=== PATIENT | female | born 1985 | race Caucasian/White ===

== ENCOUNTER → 2019-12-30 14:42 | Outpatient (BNVA) | payer BC, SELFPAY | PROVIDERS: Referring Provider Obstetrics & Gynecology; Visit Provider Obstetrics & Gynecology | DX: Z30.9 Encounter for contraceptive management, unspecified (principal); Z71.89 Other specified counseling | CPT/HCPCS: 81025 ==

== ENCOUNTER → 2020-06-15 13:10 | Outpatient (BNVA) | payer BC, SELFPAY | PROVIDERS: Visit Provider Obstetrics & Gynecology | DX: Z30.9 Encounter for contraceptive management, unspecified (principal) | CPT/HCPCS: 81025 ==

== ENCOUNTER → 2020-09-04 13:19 | Outpatient (BNVA) | payer BC, SELFPAY | PROVIDERS: Visit Provider Obstetrics & Gynecology | DX: Z30.9 Encounter for contraceptive management, unspecified (principal) | CPT/HCPCS: 81025 ==

== ENCOUNTER → 2020-11-25 10:36 | Outpatient (BNVA) | payer BC, SELFPAY | PROVIDERS: Visit Provider Obstetrics & Gynecology | DX: Z30.9 Encounter for contraceptive management, unspecified (principal) | CPT/HCPCS: 81025 ==

== ENCOUNTER 2021-10-25 09:56 | Outpatient (CLI) | payer MEDICAID, SELFPAY | END 2021-10-25 09:57 | disposition home or self-care (01) | PROVIDERS: Visit Provider Obstetrics & Gynecology | DX: Z32.01 Encounter for pregnancy test, result positive (principal) | CPT/HCPCS: 81025; 84702 ==

== ENCOUNTER → 2022-11-07 13:00 | Outpatient (BNVA) | payer MEDICAID, SELFPAY | PROVIDERS: Visit Provider Obstetrics & Gynecology | DX: Z01.419 Encounter for gynecological examination (general) (routine) without abnormal findings (principal) | CPT/HCPCS: 87624 ==

== ENCOUNTER 2023-01-10 08:44 | Day surgery (SDC) | payer MEDICAID, SELFPAY ==
[2023-01-09 14:22] VITALS: BMI 27.3
[2023-01-10] VITALS (8 sets, daily range): BP systolic 100–123; BP diastolic 54–68; PULSE 72–83; RESP 16–18; TEMP 36.9–37.1; O2SAT 94–100
[2023-01-10] MEDS: acetaminophen 1,000 MG/100 ML PIGGYBACK 400 MG IV (09:44)
[2023-01-10] MEDS: sodium chloride 0.9% 1,000 ML 30 ML IV (09:45)
[2023-01-10] MEDS: gabapentin 300 mg Capsule PO (09:50)
[2023-01-10] MEDS: scopolamine 1.5 Patch 1 PATCH TRANSDERMA (09:50)
[2023-01-10] MEDS: phenazopyridine 100 mg Tablet 200 MG PO (09:50)
[2023-01-10] MEDS: CELEcoxib 200 mg Capsule 400 MG PO (09:50)
--- NOTE | 2023-01-10 09:52 | P.ANESASSM_ITS ---
Pre-Anesthetic Assessment Height/Weight: Height 1.75 m Weight 83.915 kg Temp Pulse Resp BP Pulse Ox O2 Del Method 98.5 F 78 18 109/68 99 01/10/23 09:32 01/10/23 09:32 01/10/23 09:32 01/10/23 09:32 01/10/23 09:32 01/10/23 09:32 Preop Diagnosis: desires sterilization Operation Date: 01/10/23 11:40 Proposed Procedures p Laparoscopic bilateral salpingectomy 22410,Z30.2(Bilateral) - Kasie Person MD Familial anesthetic complications: None Was Beta Lizandro taken within 24 hours: N/A Was Clonidine taken within 24 hours: N/A Last intake: Intake Last Liquid Date 01/09/23 Last Liquid Time 21:00 Last Solid Date 01/09/23 Last Solid Time 21:00 Social Tobacco and No alcohol Exam alert, oriented x 3, clear to auscultation bilaterally and regular rate & rhythm Airway Mallampati: Class III Dentition: full Anesthetic Plan ASA status: 1 Anesthesia: General Risk of > 500 ml blood loss (7ml/kg in children): No Medications/Allergies Home Medications Medication Instructions Recorded Confirmed Last Taken Type fluoxetine 20 mg capsule (Prozac) 20 mg PO DAILY #90 caps 10/25/21 01/09/23 01/06/23 Rx Allergies Allergy/AdvReac Type Severity Reaction Status Date / Time No Known Allergies Allergy Verified 01/10/23 09:31 Current Medications Generic Name Dose Route Start Last Admin Trade Name Freq PRN Reason Stop Dose Admin Sodium Chloride 1,000 mls @ 30 mls/hr 01/10/23 09:30 01/10/23 09:45 Sodium Chloride 0.9% IV 01/11/23 09:29 30 mls/hr .Q24H JC Administration PFSH Anesthesia Medical History Mood changes Reported feeling overwhelmed and quick to anger and started on Prozac in July 2021 and doing well with this No pertinent past medical history Denies diabetes, asthma, hypertension, seizures, DVT/PE PMD: None Surgical History History of partial surgical removal of colon 10/22/2017----> patient underwent an open low anterior resection, takedown of splenic flexure, drainage of abdominal wall abscess, loop ileostomy, appendectomy, omental flap closure of pelvis for perforated colon with intra-abdominal abscess. This was performed by Dr. Carney at [facility] -Pathology showed acute diverticulitis with perforation and pericolonic abscess. ----> Operative report and hospital course has been scanned into the computer Hx of appendectomy 10/22/2017-appendectomy performed at time of open low anterior resection. Done by Dr. Jiang at [facility]. Operative report scanned into chart. Pathology showed normal appendix. Hx of wisdom tooth extraction (~2011) Family History Unknown Family history unknown Patient states she does not know her family history and her family is not a reliable source for this information. Data Anesthesia Cardiac Studies: No Data to Display
[2023-01-10 10:00] LABS: OR HCG Qualitative Urine Negative (Negative)
--- NOTE | 2023-01-10 10:10 | W.PM.OPSUD ---
Surgery/Procedure H&P Update DATE OF PROCEDURE: January 10, 2023 DATE H&P PERFORMED: 01/05/23 H&P UPDATE INFORMATION: I have reviewed H&P completed within last 30 days, I have examined patient prior to procedure and No changes to prior documentation PREOP DIAGNOSIS: desires sterilization PLANNED PROCEDURE: Operation Date: 01/10/23 11:40 Proposed Procedures p Laparoscopic bilateral salpingectomy 06840,Z30.2(Bilateral) - Kasie Person MD Related Problem List Diagnoses (1) Sterilization consult:
[2023-01-10] MEDS: ceFAZolin 2,000 MG in sodium chloride 0.9% (plus) 50 ML 100 MG IV (11:53)
--- NOTE | 2023-01-10 13:49 | PM.OP ---
Operative Report Date of procedure: January 10, 2023 Pre-op diagnosis: Preop Diagnosis desires sterilization Post-op diagnosis: same Post-op findings: extensive omental adhesions to abdominal wall and pelvis Procedure done: laparoscopic bilateral salpingectomy Specimens removed/disposition: bilateral fallopian tubes to pathology Surgeon: Kasie Person Anesthesia: General Estimated blood loss (mL): 20 IV fluids (mL): 1,300 Urine output (mL): 150 Complications: none Findings: extensive omental adhesions to abdominal wall, pelvis, uterus, left adnexae. Normal appearing uterus, tubes and ovaries. Condition: stable Disposition: PACU Procedure: The patient was taken to the operating room where general anesthesia was administered and found to be adequate. She was prepped and draped in the normal sterile fashion in the dorsal lithotomy position in [facility]. A Godinez catheter was placed. A weighted speculum was placed into the vagina and the anterior lip of the cervix grasped with a single-tooth tenaculum. A ZUMI uterine manipulator was placed. The gloves were changed and attention was turned to the laparoscopic portion of the case. A 5 mm supraumbilical incision was made. I attempted to place the 5 mm trocar. I was unable to placed it, as I continued to encounter adhesions. I moved to the [facility], [place]. A 5 mm incision was made. I attempted to place a 5 mm trocar and again encountered adhesions. At this time, I ask Dr. Briones, general surgery, to assist. He placed a veres needle in the LUQ incision and insufflated the abdomen. He was able to then place the 5 mm trocar. He scrubbed out and went to perform his surgery. I placed a LLQ 5 mm trocar was placed using direct visualization. The cautery device was used to take down the pelvic and abdominal wall adhesions. I was then able to see the pelvis. A RLQ 5 mm trocar was placed using direct visualization. Using a laparoscopic grasper, the right fallopian tube was elevated. Using the laparoscopic cautery, the fallopian tube was clamped cauterized and cut. First on the right, then on the left. There was excellent hemostasis post removal of the bilateral tubes. The pelvis was irrigated. There were two areas on the uterus that were slowly bleeding. Cautery was used and no further blood was seen. All instruments were removed. The abdomen was desufflated. The incisions were closed with 4-0 Vicryl. 10 ml of 1/2% bupivicaine was used around the incisions. The patient tolerated the procedure well. Sponge lap and needle counts were correct x3. She was taken to the recovery room in stable condition.
--- NOTE | 2023-01-10 14:06 | PM.DCS ---
Discharge Providers Date of Admission: 01/10/23 Date of Discharge: January 10, 2023 Attending Provider at Admission: Dr. Person Attending Provider at Discharge: Kasie Person MD Primary Care Provider: BIBI Crisostomo Diagnoses at Discharge Discharge Diagnosis (1) Sterilization consult: Status: Acute Reason for Visit Reason for Visit: Encounter for sterilization Hospital Course Hospital Course The patient was admitted for surgery. She did well postoperatively and was ready for discharge. Physical Exam Urinary Catheter Management: Godinez: Cath Placed During This Visit: yes, but has since been removed by the nurse Urinary Catheter Date of Insertion: 01/10/23 Urinary Catheter Time of Insertion: 12:16 Date Urinary Catheter Removed: 01/10/23 Time Urinary Catheter Discontinued: 13:35 Discharge Data Studies Completed and Pending Pending at discharge Category Date Time Status ES surgery / GI images Routine Exams 01/10/23 Taken Urine Culture Routine Lab 01/10/23 12:16 Received Pathology: Surgical [PTH] Routine Pth 01/10/23 13:27 Received Laboratory Results Urine HCG, Qual Negative (Negative) 01/10/23 09:59 Vitals Last Vital Signs Temp 98.4 F 01/10/23 14:00 Pulse 74 01/10/23 14:00 Resp 18 01/10/23 14:00 BP 114/54 01/10/23 14:00 Pulse Ox 100 01/10/23 14:00 O2 Del Method 01/10/23 14:00 O2 Flow Rate 8 01/10/23 14:00 Discharge Plan Discharge Patient Disposition: Home Condition: Stable Prescriptions: New hydrocodone-acetaminophen 5-325 mg tablet 1 tab PO Q6H PRN (Reason: pain) Qty: 30 0RF Continued fluoxetine [Prozac] 20 mg capsule 20 mg PO DAILY Qty: 90 3RF Discharge Orders: Discharge Order (Routine); Ordered 01/10/23 Ordered By: Kasie Person Discharge Attestations Time Spent in Discharge Care*: less than 30 min Quality Metrics Clinical Quality Measures [ No reported AMI, CVA or VTE this stay] Coding Level of Care Code Acute Code for Chg Fwd Diagnoses Sterilization consult Z30.09
[2023-01-10] MEDS: HYDROcodone-acetaminophen 5-325 mg Tablet 1 TAB PO (14:48)
--- NOTE | 2023-01-10 15:26 | ANE.PACU2 ---
Inpatient post-anesthesia follow up: Airway intact: Yes Vital signs: Temperature 98.7 F Pulse Rate 81 Respiratory Rate 16 Blood Pressure 112/59 Pulse Oximetry 95 Oxygen Delivery Me thod Room Air Oxygen Flow Rate 8 Fraction of Inspir ed Oxygen Hydration adequate: Yes Nausea and vomiting: No Pain level: 1 Mental status: Baseline
== END 2023-01-10 15:06 | disposition home or self-care (01) ==
PROVIDERS: Anesthesiology; PCP Nurse Practitioner Family; Visit Provider Obstetrics & Gynecology
PROC: (CPT 58661; principal; 2023-01-10 11:40)
DX: Z30.2 Encounter for sterilization (principal); K66.0 Peritoneal adhesions (postprocedural) (postinfection)
CPT/HCPCS: 58661; 84703; 87086; 88302; J0131; J0690; J1100; J1170; J2405; J2704; J2710; J3010; J3490; J7030

== ENCOUNTER 2024-12-20 14:00 | Outpatient (CLI) | payer MEDICAID, SELFPAY ==
--- NOTE | 2024-12-20 14:05 | US_ITS ---
WS: [id number] US pelvic complete* [id number] HISTORY: IRREGULAR MENSES COMPARISON: 08/29/2017 Uterus: 8.4 cm x 4.5 cm x 4.1 cm. Normal size anteverted uterus. No fibroid or mass. Small nabothian cyst at the cervix. Endometrium: 0.7 cm. Normal. Neither ovary is identified. No adnexal masses. US/US pelvic complete* [id number] IMPRESSION: 1. Normal endometrium. 2. Neither ovary identified.
== END 2024-12-20 14:01 | disposition home or self-care (01) ==
PROVIDERS: PCP Nurse Practitioner Family; Visit Provider Nurse Practitioner Family
DX: N92.6 Irregular menstruation, unspecified (principal); N93.9 Abnormal uterine and vaginal bleeding, unspecified; N88.8 Other specified noninflammatory disorders of cervix uteri
CPT/HCPCS: 76856

== ENCOUNTER → 2025-02-05 09:39 | Outpatient (BNVA) | payer MEDICAID, SELFPAY | PROVIDERS: PCP Nurse Practitioner Family; Visit Provider Nurse Practitioner Women's Health | DX: Z01.419 Encounter for gynecological examination (general) (routine) without abnormal findings (principal) | CPT/HCPCS: 87624 ==

== ENCOUNTER → 2025-02-06 10:17 | Outpatient (BNVA) | payer MEDICAID, SELFPAY | PROVIDERS: PCP Nurse Practitioner Family; Visit Provider Nurse Practitioner Women's Health | DX: N92.6 Irregular menstruation, unspecified (principal) | CPT/HCPCS: 76830 ==